=== PATIENT | female | born 1985 | race Caucasian/White ===

== ENCOUNTER 2021-03-09 19:16 | Emergency (ER) | payer BC ==
[~2021-03-09] VITALS: Ht 160 cm; Wt 63.5 kg
[2021-03-09] MEDS ORDERED: KETOROLAC TROMETH 60MG/2ML VIAL IM ONE (19:30)
[2021-03-09] MEDS ORDERED: ONDANSETRON ODT 4 MG TAB PO ONE (19:30)
[2021-03-09] MEDS ORDERED: ONDANSETRON HCL 4 MG/2 ML VIAL IM ONE (19:45)
[2021-03-09 21:16] VITALS: BP 125/86
== END 2021-03-10 00:19 | disposition home or self-care (01) ==
LOC: ER 19:23
DX: G43.909 Migraine, unspecified, not intractable, without status migrainosus (principal); R11.2 Nausea with vomiting, unspecified; H53.149 Visual discomfort, unspecified
CPT/HCPCS: 96372; 99284; J1885; J2405